=== PATIENT | male | born 1980 | race Caucasian/White ===

== ENCOUNTER 2020-05-10 17:12 | Inpatient (IN) | payer MEDICAID ==
[~2020-05-10] VITALS: Ht 170.2 cm; Wt 137.8 kg
[2020-05-10] MEDS ORDERED: LORazepam 2 MG/ML, 1ML ONE ×6 (17:52→21:56)
[2020-05-10] MEDS ORDERED: LORazepam 2 MG/ML, 1ML IVPush ONE (18:30)
[2020-05-10 18:43] LABS: MEAN CORPUSCULAR HEMOGLOBIN 29.2 pg (27.5-34.5); MEAN CORPUSCULAR HGB CONC 32.7 g/dL (33.2-36.2); MEAN PLATELET VOLUME 7.1 fL (7.4-10.4); PLATELET COUNT 461 x10^3/uL (130-400); RED BLOOD COUNT 4.36 x10^6/uL (4.38-5.82); RED CELL DISTRIBUTION WIDTH 14.3 % (9.4-14.8)
--- NOTE | 2020-05-10 18:45 | NUR ---
PT AMBULATED TO RESTROOM WITH SHUFFLING GAIT TO PROVIDE URINE SAMPLE. UDS COLLECTED AND TAKEN TO LAB.
[2020-05-10 18:55] LABS: ALANINE AMINOTRANSFERASE 54 U/L (12-78); ALBUMIN 3.9 g/dL (3.4-5.0); ANION GAP 8 mmol/L (5-15); CHLORIDE 104 mmol/L (98-107); CREATININE 1.41 mg/dL (0.7-1.3)
[2020-05-10 18:57] LABS: ALKALINE PHOSPHATASE 57 U/L (45-117); BILIRUBIN,TOTAL 0.4 mg/dL (0.2-1.0); SALICYLATE LEVEL 3.7 mg/dL (2.8-20.0); TOTAL PROTEIN 7.4 g/dL (6.4-8.2)
[2020-05-10] MEDS ORDERED: SODIUM CHLORIDE 0.9% 1,000ML IVBOLUS ONE (19:00)
[2020-05-10] MEDS ORDERED: SODIUM CHLORIDE FLUSH 10ML SYR IVF ONE (19:00)
[2020-05-10 19:25] LABS: MD YES
[2020-05-10 19:27] LABS: LYMPH#(MANUAL) 1.24 x10^3/uL (1-3.4); LYMPHS% (MANUAL) 9 % (22-44); MONOS#(MANUAL) 0.97 x10^3/uL (0.3-2.7); MONOS% (MANUAL) 7 % (2-9); SEG#(MANUAL) 11.59 x10^3/uL (1.8-6.8); SEGS% (MANUAL) 84 % (42-75)
[2020-05-10 19:28] LABS: ANISOCYTOSIS 1+
[2020-05-10 19:30] LABS: <PLATELET ESTIMATE> INCREASED; SMALL PLATELETS 1+
[2020-05-10 19:40] LABS: AMPHETAMINE SCREEN, URINE Negative (Negative); BENZODIAZEPINE SCREEN, URINE Negative (Negative); CANNABINOID SCREEN, URINE Negative (Negative); COCAINE SCREEN, URINE Negative (Negative); METHADONE SCREEN, URINE Negative (Negative); OPIATE SCREEN, URINE Negative (Negative)
[2020-05-10 19:42] LABS: BARBITURATE SCREEN, URINE Negative (Negative)
--- NOTE | 2020-05-10 19:52 | NUR ---
ALL RESULTS ARE BACK AT THIS TIME. CHART UP FOR RECHECK.
--- NOTE | 2020-05-10 19:53 | NUR ---
MD AT BEDSIDE TO UPDATE PT AND GF ON POC.
[2020-05-10] MEDS: LORazepam 2 MG/ML, 1ML IVPush PRN ×6 (19:57→21:59)
[2020-05-10] MEDS ORDERED: ZIPRASIDONE 20 MG INJ IM ONE ×3 (20:34→21:00)
[2020-05-10] MEDS ORDERED: THIAMINE 100 MG in SODIUM CHLORIDE 0.9% 50 ML IVPB ONE (21:00)
--- NOTE | 2020-05-10 21:01 | NUR ---
LATE ENTRY D/T PT CARE. AFTER 2 DOSES ATIVAN, PT STILL FIDGITY AND ANXIOUS. PT PULLED OUT PIV. PIV REPLACED BY TASK RN. SITTER PLACED AT BEDSIDE. AFTER 3 DOSES ATIVAN, NO CHANGE. RECEIVED V/O FOR GEODON 10MG. NO CHANGE AFTER 10MG. V/O FOR SECOND DOSE GEODON 10MG, FOR TOTAL GEODON 20MG IM. SITTER AT BEDSIDE.
--- NOTE | 2020-05-10 21:30 | NUR ---
PT STILL ANXIOUS AND TRYING TO GET OUT OF BED. RECEIVED V/O FOR ATIVAN 2MG IV.
--- NOTE | 2020-05-10 21:50 | NUR ---
PT MOVING AROUND TOO MUCH TO GET BP. PULSE OX PLACED ON PT TOE.
--- NOTE | 2020-05-10 22:04 | NUR ---
PT RECEIVED 3/4 DOSES ATIVAN 2MG IV. PT SLEEPING. PT PLACED ON 2L OXYGEN VIA NC FOR SAFETY.
--- NOTE | 2020-05-10 23:08 | NUR ---
REPORT FROM ORACIO ORTEGA. PT CARE TRANSFERRED AT THIS TIME. PT RESTING ON GURNEY, BREATHING THROUGH MOUTH, TREMORS AND REGULAR MOVEMENT NOTED. [facility] AT FOR EVAL. PT EXTREMELY RESTLESS. TODD.
[2020-05-10] MEDS ORDERED: LISI-170 PO (23:15)
[2020-05-10] MEDS ORDERED: AMLO-211 PO (23:15)
[2020-05-10] MEDS ORDERED: IBUP-1223 PO (23:15)
[2020-05-10] MEDS ORDERED: OMEP-231 PO (23:15)
[2020-05-10] MEDS ORDERED: ATOR10TA9 PO (23:15)
[2020-05-10] MEDS ORDERED: RISP4TAB66 PO (23:15)
[2020-05-10] MEDS ORDERED: BENZ0.5T35 PO (23:15)
[2020-05-10] MEDS ORDERED: FENO145T19 PO (23:15)
[2020-05-10] MEDS ORDERED: DOXE100C PO (23:15)
[2020-05-10] MEDS ORDERED: BUPR150T13 PO (23:15)
--- NOTE | 2020-05-10 23:26 | NUR ---
RN DISCUSSED WITH ERP PHENO ORDERS, ERP BOSCOVICH DECLINED AT THIS TIME D/T PT CONDITION BEING IMPROVED FROM EARLIER. PT RESTING ON GURNEY, RESTLESS, INCREASED RESP RATE. GF AT , WCTM. CCU HOLD
[2020-05-10] MEDS ORDERED: ALUMINUM/MAG/SIMETHICONE 30 ML UDC PO PRN (23:30)
[2020-05-10] MEDS ORDERED: PHENOBARBITAL SODIUM IVPB ONE (23:30)
[2020-05-10] MEDS ORDERED: PHARMACY INSTRUCTION MC PRN ×4 (23:30)
[2020-05-10] MEDS ORDERED: LABETALOL 5MG/ML, 20ML IV PRN (23:30)
[2020-05-10] MEDS ORDERED: SODIUM CHLORIDE 0.9% IVPB ONE (23:30)
[2020-05-10] MEDS ORDERED: DIPHENHYDRAMINE 50 MG/ML, 1ML IV PRN (23:30)
[2020-05-11] MEDS ORDERED: DOCUSATE 100 MG CAPSULE PO PRN ×2
[2020-05-11] MEDS ORDERED: HEPARIN 5,000 UNITS/ML, 1ML SQ SCH
[2020-05-11] MEDS ORDERED: morphine SULFATE 10 MG/ML, 1ML IVPush PRN ×2
[2020-05-11] MEDS ORDERED: LORazepam 2 MG/ML, 1ML IV PRN ×5
[2020-05-11] MEDS ORDERED: LORazepam 2 MG/ML, 1ML ONE ×5 (00:05→08:57)
--- NOTE | 2020-05-11 00:11 | NUR ---
PT MEDICATED PER MAR ACCORDING TO [place], PT RESTING ON GURNEY, APPEARS LESS UNCOMFORTABLE AND SLIGHTLY LESS FIDGETY AT THIS TIME. CICU BED ORDERS, WCTM. CICU HOLD
[2020-05-11] MEDS: LORazepam 2 MG/ML, 1ML IVPush PRN ×3 (00:53→09:09)
--- NOTE | 2020-05-11 00:53 | NUR ---
PT BECAME INCREASINGLY AGGITATED, SWINGING ARMS AND LEGS AT STAFF. PT MEDICATED PER MAR. PT CHANGED FROM URINE SOAKED CLOTHING, PLACED ON HOSPITAL BED, WITH CLEAN LINENS, WCTM.
--- NOTE | 2020-05-11 01:01 | NUR ---
CHAPSTICK APPLIED TO PT FOR DRY LIPS, RN ATTEMPTED TO PROVIDE ORAL SWABS TO MOISTEN MOUTH, PT DID NOT TOLERATE WELL, SWATTING AT RN.
--- NOTE | 2020-05-11 01:12 | NUR ---
bedside report to Osiris weaver, pt care transferred at this time.
--- NOTE | 2020-05-11 01:17 | NUR ---
Report received from JORDAN Brown. This RN to assume care.
--- NOTE | 2020-05-11 02:30 | NUR ---
Patient sleeping in hospital bed. Respirations even and deep. Maintaining O2 sat with O2.
--- NOTE | 2020-05-11 03:55 | NUR ---
Patient sleeping in hospital bed. Respirations even and deep. Maintaining O2 sat with O2.
--- NOTE | 2020-05-11 04:32 | NUR ---
Patient attempting to get out of bed; patient agitated. CIWA performed. Meds admin per aug. Patient states he has to pee. Patient pulled off condom catheter. Assisted patient with urinal.
--- NOTE | 2020-05-11 05:00 | NUR ---
Patient continuously breathing heavy. ABGs ordered.
--- NOTE | 2020-05-11 05:29 | NUR ---
Tech at bedside to continuously monitor patient. Lab at bedside.
[2020-05-11 06:21] LABS: ALBUMIN 3.6 g/dL (3.4-5.0); ANION GAP 9 mmol/L (5-15); CALCIUM 8.8 mg/dL (8.5-10.1); CHLORIDE 108 mmol/L (98-107)
[2020-05-11 06:27] LABS: ALANINE AMINOTRANSFERASE 57 U/L (12-78); ALKALINE PHOSPHATASE 56 U/L (45-117); BILIRUBIN,TOTAL 0.7 mg/dL (0.2-1.0); CREATININE 1.23 mg/dL (0.7-1.3); TOTAL PROTEIN 7.1 g/dL (6.4-8.2)
[2020-05-11 06:31] LABS: BASOPHILS % (AUTO) 1 % (0-1); EOSINOPHILS % (AUTO) 1 % (1-7); LYMPHOCYTES % (AUTO) 15 % (22-44); MEAN CORPUSCULAR HEMOGLOBIN 29.6 pg (27.5-34.5); MEAN CORPUSCULAR HGB CONC 32.7 g/dL (33.2-36.2); MEAN PLATELET VOLUME 7.3 fL (7.4-10.4); MONOCYTES % (AUTO) 10 % (2-9); NEUTROPHILS % (AUTO) 73 % (42-75); PLATELET COUNT 429 x10^3/uL (130-400); RED BLOOD COUNT 4.27 x10^6/uL (4.38-5.82); RED CELL DISTRIBUTION WIDTH 14.4 % (9.4-14.8)
--- NOTE | 2020-05-11 06:37 | NUR ---
Tech at bedside. Patient restless but staying in bed.
--- NOTE | 2020-05-11 06:54 | NUR ---
REPORT RECEIVED FROM KINJAL ORTEGA. PT RESTING ON HOSPITAL BED, CONNECTED TO MONITORING, SIDE RAILS UPX2 AND SITTER AT BEDSIDE. PT TACHYCARDIC, OTHER VS WDL. PT IS RESTLESS, AWAITING CCU ADMIT.
--- NOTE | 2020-05-11 06:55 | NUR ---
Report given to JORDAN Plascencia. Patient care transferred.
[2020-05-11 07:00] LABS: MD NO
--- NOTE | 2020-05-11 07:02 | NUR ---
MORNING MEDS REQUESTED FROM PHARMACY.
--- NOTE | 2020-05-11 07:15 | NUR ---
PT MEDICATED PER EMAR. PROVIDED W/ APPLE JUICE, APPLE TO DRINK W/O INCIDENT. PT A&OX2, ANSWERING OTHER QUESTIONS APPROPRIATELY. SITTER OUTSIDE ROOM FOR SAFETY. RESP EVEN AND UNLABORED, KWABENA.
--- NOTE | 2020-05-11 08:03 | NUR ---
MESSAGE LEFT FOR REQUESTING CALL BACK.
--- NOTE | 2020-05-11 08:05 | NUR ---
PER PT CAN BE SWITCHED TO REGULAR DIET.
[2020-05-11] MEDS ORDERED: HEPARIN 5,000 UNITS/ML, 1ML ONE (08:13)
[2020-05-11] MEDS ORDERED: AMLODIPINE 5 MG TABLET ONE (08:13)
[2020-05-11] MEDS ORDERED: IBUPROFEN 800 MG TABLET ONE (08:13)
[2020-05-11] MEDS ORDERED: OMEPRAZOLE 20 MG CAPSULE.DR ONE (08:13)
[2020-05-11] MEDS ORDERED: LISINOPRIL 20 MG TABLET ONE (08:13)
[2020-05-11] MEDS: OMEPRAZOLE 20 MG CAPSULE.DR PO SCH (08:28)
[2020-05-11] MEDS: FENOFIBRATE 145 MG TABLET PO SCH (08:29)
[2020-05-11] MEDS: BENZTROPINE 1 MG TABLET PO SCH ×2 (08:29→20:24)
[2020-05-11] MEDS: AMLODIPINE 5 MG TABLET PO SCH (08:29)
[2020-05-11] MEDS: LISINOPRIL 20 MG TABLET PO SCH (08:29)
[2020-05-11] MEDS: BUPROPION SR 150 MG TABLET PO SCH ×2 (08:31→20:24)
[2020-05-11] MEDS: HEPARIN 5,000 UNITS/ML, 1ML SQ SCH ×4 (08:37→23:57)
--- NOTE | 2020-05-11 08:55 | NUR ---
TELEPHONE CALL TO PHARMACY REQUESTING BANANA BAG AGAIN. TECH STATES THEY WILL MAKE IT UP.
[2020-05-11] MEDS ORDERED: IBUPROFEN 800 MG TABLET PO SCH (09:00)
--- NOTE | 2020-05-11 09:00 | NUR ---
PT PROVIDED W/ REGULAR BREAKFAST TRAY, ABLE TO CONSUME APPROX 50% OF EGGS.
--- NOTE | 2020-05-11 09:11 | NUR ---
PT W/ INCREASED CONFUSION AND RESTLESS. PT STATES "I NEED TO GO GET MY SON OUT OF THE BATHROOM SO WE CAN GO HOME". PT REPEATEDLEY STATING HE WANTS TO GO HOME. PT REORIENTED TO SITUATION. SITTER OUTSIDE ROOM FOR SAFETY. RESP EVEN AND UNLABORED, L[place]IS[place].
--- NOTE | 2020-05-11 09:20 | NUR ---
PT NOW APPEARS TO BE HAVING VISUAL HALLUCINATIONS, HAVING CONVERSATIONS WHILE LOOKING AT WALL. PT MEDICATED PER EMAR. SITTER OUTSIDE ROOM FOR SAFETY.
[2020-05-11] MEDS: [UNRECOGNIZED DRUG - OTHER] IV SCH (09:30)
[2020-05-11] MEDS: FOLIC ACID IV SCH (09:30)
[2020-05-11] MEDS: POTASSIUM CHLORIDE IV SCH (09:30)
[2020-05-11] MEDS: THIAMINE IV SCH (09:30)
[2020-05-11] MEDS: MAGNESIUM SULFATE IV SCH (09:30)
--- NOTE | 2020-05-11 09:47 | NUR ---
MED GALO FROM PHARMACY.
[2020-05-11] MEDS ORDERED: SODIUM CHLORIDE 0.9% IVPB ONE (10:00)
[2020-05-11] MEDS ORDERED: PHARMACY INSTRUCTION MC PRN ×4 (10:00)
[2020-05-11] MEDS ORDERED: PHENOBARBITAL SODIUM IVPB ONE (10:00)
--- NOTE | 2020-05-11 10:36 | NUR ---
2ND PIV STARTED BY EMS STUDENT SERA. PHENOBARBITAL STARTED PER EMAR. PT RESTING ON GURNEY W/ SIDE RAILS UPX2, SITTER OUTSIDE ROOM FOR SAFETY. PT STILL DISORIENTED TO SITUATION.
--- NOTE | 2020-05-11 11:18 | NUR ---
PT CONTINUES TO BE RESTLESS, CONTINOUSLY TRYING TO GET OUT OF BED. PT REORIENTED. SIDE RAILS UPX2. SITTER OUTSIDE ROOM FOR SAFETY. GIRLFRIEND AT BEDSIDE.
--- NOTE | 2020-05-11 11:23 | NUR ---
PER PTS GIRLFRIEND JASMIN, PT DRINKS ABOUT 1/5 ALCOHOL PER DAY FOR YEARS.
--- NOTE | 2020-05-11 12:04 | NUR ---
REPORT GIVEN TO CHAGO ORTEGA. PT IS READY FOR TRANSPORT AT THIS TIME W/ IVF INFUSING APPROPRIATELY. RESP EVEN AND UNLABORED, KWABENA.
[2020-05-11 15:13] VITALS: BP 118/79
[2020-05-11] MEDS ORDERED: PHENOBARBITAL SODIUM IV ONE ×2 (15:30→19:30)
[2020-05-11] MEDS ORDERED: SODIUM CHLORIDE 0.9% IV ONE ×2 (15:30→19:30)
[2020-05-11] MEDS: RISPERIDONE 2 MG TABLET PO SCH (20:24)
[2020-05-11] MEDS: DOXEPIN 100 MG CAPSULE PO SCH (20:24)
[2020-05-11] MEDS: ATORVASTATIN 40 MG TABLET PO SCH (20:24)
[2020-05-12] MEDS ORDERED: PHENOBARBITAL SODIUM 65 MG/ML, 1ML ONE (01:27)
[2020-05-12] MEDS ORDERED: PHENOBARBITAL SODIUM 130 MG/ML, 1ML IM SCH (01:30)
[2020-05-12] MEDS: PHENOBARBITAL SODIUM 65 MG/ML, 1ML IM SCH ×2 (01:39→13:41)
[2020-05-12 04:30] LABS: ALANINE AMINOTRANSFERASE 62 U/L (12-78); ALBUMIN 3.4 g/dL (3.4-5.0); ANION GAP 7 mmol/L (5-15); CALCIUM 8.3 mg/dL (8.5-10.1); CHLORIDE 108 mmol/L (98-107); CREATININE 1.14 mg/dL (0.7-1.3)
[2020-05-12 04:33] LABS: ALKALINE PHOSPHATASE 51 U/L (45-117); BILIRUBIN,TOTAL 0.5 mg/dL (0.2-1.0); TOTAL PROTEIN 6.9 g/dL (6.4-8.2)
[2020-05-12] MEDS ORDERED: SODIUM CHLORIDE 0.9% 1,000 ML IV SCH (08:30)
[2020-05-12] MEDS: FENOFIBRATE 145 MG TABLET PO SCH (08:32)
[2020-05-12] MEDS: OMEPRAZOLE 20 MG CAPSULE.DR PO SCH (08:32)
[2020-05-12] MEDS: AMLODIPINE 5 MG TABLET PO SCH (08:32)
[2020-05-12] MEDS: BENZTROPINE 1 MG TABLET PO SCH ×2 (08:32→20:47)
[2020-05-12] MEDS: BUPROPION SR 150 MG TABLET PO SCH ×2 (08:32→20:47)
[2020-05-12] MEDS: HEPARIN 5,000 UNITS/ML, 1ML SQ SCH ×2 (08:33→16:00)
[2020-05-12] MEDS: LISINOPRIL 20 MG TABLET PO SCH (08:33)
[2020-05-12] MEDS: FOLIC ACID IV SCH (09:29)
[2020-05-12] MEDS: [UNRECOGNIZED DRUG - OTHER] IV SCH (09:29)
[2020-05-12] MEDS: MAGNESIUM SULFATE IV SCH (09:29)
[2020-05-12] MEDS: POTASSIUM CHLORIDE IV SCH (09:29)
[2020-05-12] MEDS: THIAMINE IV SCH (09:29)
[2020-05-12] MEDS ORDERED: NICOTINE 21 MG/24 HR PATCH.TD24 TD ONE (15:30)
[2020-05-12] MEDS: SODIUM CHLORIDE 0.9% 1,000 ML IV SCH (18:10)
[2020-05-12] MEDS: DOXEPIN 100 MG CAPSULE PO SCH (20:48)
[2020-05-12] MEDS: ATORVASTATIN 40 MG TABLET PO SCH (20:48)
[2020-05-12] MEDS: RISPERIDONE 2 MG TABLET PO SCH (20:48)
[2020-05-13] MEDS: HEPARIN 5,000 UNITS/ML, 1ML SQ SCH ×3 (00:04→15:39)
[2020-05-13] MEDS: PHENOBARBITAL 20 MG/5 ML ORAL SOL PO SCH ×2 (02:03→13:37)
[2020-05-13 04:33] LABS: ANION GAP 5 mmol/L (5-15); CALCIUM 8.2 mg/dL (8.5-10.1); CHLORIDE 109 mmol/L (98-107); CREATININE 1.09 mg/dL (0.7-1.3)
[2020-05-13] MEDS: OMEPRAZOLE 20 MG CAPSULE.DR PO SCH (05:14)
[2020-05-13] MEDS: BUPROPION SR 150 MG TABLET PO SCH ×2 (08:41→20:33)
[2020-05-13] MEDS: NICOTINE 21 MG/24 HR PATCH.TD24 TD SCH (08:41)
[2020-05-13] MEDS: BENZTROPINE 1 MG TABLET PO SCH ×2 (08:41→20:33)
[2020-05-13] MEDS: LISINOPRIL 20 MG TABLET PO SCH (08:41)
[2020-05-13] MEDS: AMLODIPINE 5 MG TABLET PO SCH (08:42)
[2020-05-13] MEDS: FENOFIBRATE 145 MG TABLET PO SCH (08:42)
[2020-05-13] MEDS: SODIUM CHLORIDE 0.9% 1,000 ML IV SCH ×2 (08:44→20:34)
[2020-05-13] MEDS: POTASSIUM CHLORIDE IV SCH (10:18)
[2020-05-13] MEDS: FOLIC ACID IV SCH (10:18)
[2020-05-13] MEDS: [UNRECOGNIZED DRUG - OTHER] IV SCH (10:18)
[2020-05-13] MEDS: THIAMINE IV SCH (10:18)
[2020-05-13] MEDS: MAGNESIUM SULFATE IV SCH (10:18)
[2020-05-13 19:05] VITALS: BP 117/80
[2020-05-13] MEDS ORDERED: ROPINIROLE 1MG TABLET ONE (20:19)
[2020-05-13] MEDS ORDERED: RISPERIDONE 1 MG TABLET ONE ×2 (20:25→20:26)
[2020-05-13] MEDS: DOXEPIN 100 MG CAPSULE PO SCH (20:31)
[2020-05-13] MEDS: RISPERIDONE 2 MG TABLET PO SCH (20:32)
[2020-05-13] MEDS: ATORVASTATIN 40 MG TABLET PO SCH (20:33)
[2020-05-14] MEDS: PHENOBARBITAL 20 MG/5 ML ORAL SOL PO SCH ×2 (00:32→14:18)
[2020-05-14] MEDS: HEPARIN 5,000 UNITS/ML, 1ML SQ SCH ×3 (00:32→17:00)
[2020-05-14 03:12] VITALS: BP 121/72
[2020-05-14] MEDS: OMEPRAZOLE 20 MG CAPSULE.DR PO SCH (07:58)
[2020-05-14 08:36] VITALS: BP 129/84
[2020-05-14] MEDS: FENOFIBRATE 145 MG TABLET PO SCH (09:06)
[2020-05-14] MEDS: LISINOPRIL 20 MG TABLET PO SCH (09:06)
[2020-05-14] MEDS: NICOTINE 21 MG/24 HR PATCH.TD24 TD SCH (09:06)
[2020-05-14] MEDS: BENZTROPINE 1 MG TABLET PO SCH (09:07)
[2020-05-14] MEDS: AMLODIPINE 5 MG TABLET PO SCH (09:07)
[2020-05-14] MEDS: BUPROPION SR 150 MG TABLET PO SCH (09:07)
[2020-05-14] MEDS: SODIUM CHLORIDE 0.9% 1,000 ML IV SCH (10:40)
[2020-05-14] MEDS ORDERED: MULT-449 PO (13:06)
[2020-05-14] MEDS ORDERED: THIA100T67 PO (13:06)
[2020-05-14] MEDS ORDERED: FOLI-17 PO (13:06)
[2020-05-14 13:49] VITALS: BP 118/74
[2020-05-14] MEDS ORDERED: FLU VACC QS2020-21(6MOS UP)/PF 60MCG/0.5 ML SYR IM-VACC ONE (18:00)
[2020-05-14 19:13] VITALS: BP 133/89
[2020-05-16] MEDS ORDERED: PHENOBARBITAL 20 MG/5 ML ORAL SOL PO SCH (01:30)
[2020-05-17] MEDS ORDERED: PHENOBARBITAL 20 MG/5 ML ORAL SOL PO SCH (01:30)
== END 2020-05-14 20:02 | disposition home or self-care (01) | DRG 52 ==
LOC: ED 19:07 → UNDOADMIN 20:02 → EDIP 20:02 → CCU 05-11 12:17 → 4NW 05-13 17:39
PROVIDERS: ADMIT Family Medicine; ATTEND Internal Medicine
DX: G93.41 Metabolic encephalopathy (principal); E78.5 Hyperlipidemia, unspecified; F10.231 Alcohol dependence with withdrawal delirium; F17.200 Nicotine dependence, unspecified, uncomplicated; F25.9 Schizoaffective disorder, unspecified; F32.9 Major depressive disorder, single episode, unspecified; J32.9 Chronic sinusitis, unspecified; I10 Essential (primary) hypertension; K21.9 Gastro-esophageal reflux disease without esophagitis; E87.8 Other disorders of electrolyte and fluid balance, not elsewhere classified; E66.01 Morbid (severe) obesity due to excess calories; Z68.42 Body mass index [BMI] 45.0-49.9, adult; Z23 Encounter for immunization
CPT/HCPCS: 36415; 36600; 70450; 80048; 80053; 80307; 82140; 82803; 83690; 83735; 84100; 85025; 87081; 90686; 93005; G0378; J1644; J2560; J3411; J3475; J3480; J3486; J2060; J7030